=== PATIENT | female | born 1995 ===

== ENCOUNTER 2018-09-02 11:39 | Emergency (ER) | payer SELFPAY ==
[2018-09-02 12:08] VITALS: RESP 16
[2018-09-02] MEDS ORDERED: Mag&Al/Simet/Diphen/Lido 237 ML KIT MM STA (12:19)
--- NOTE | 2018-09-02 12:21 | C.PDOC ---
History Of Present Illness 22 y/o F c PMHx thyroid disease, appendectomy p/w sore throat, back ache, headache x 4 days. Reports fever of 100.1 or so for the first 1 to 2 days. Taking Theraflu at home. Denies stiff neck, vomiting, dyspnea, cough, dysuria, increased urinary frequency, recent travel, sick contacts. Time Seen by Provider: 09/02/18 12:14 Chief Complaint (Nursing): ENT Problem Past Medical History Vital Signs: Last Vital Signs Temp 98.1 F 09/02/18 12:05 Pulse 100 H 09/02/18 12:05 Resp 16 09/02/18 12:05 BP 101/68 09/02/18 12:05 Pulse Ox 96 09/02/18 12:05 - Medical History PMH: Hyperthyroidism Surgical History: Appendectomy Family History: States: No Known Family Hx - Social History Hx Alcohol Use: No Hx Substance Use: No - Immunization History Hx Tetanus Toxoid Vaccination: No Hx Influenza Vaccination: Yes Hx Pneumococcal Vaccination: No Review Of Systems Except As Marked, All Systems Reviewed And Found Negative. Respiratory: Negative for: Shortness of Breath Gastrointestinal: Negative for: Vomiting Physical Exam - Physical Exam Additional Physical Exam Comments: Gen: NAD Head: NC/AT Eyes: PERRL ENT: Phyarngeal erythema without exudates Chest: No tenderness CV: Regular rate Lungs: CTA b/l Abd: Soft, NT Back: No CVA tenderness. No midline tenderness Extremities: No edema Skin: No rash Neuro: Alert, no focal deficit ED Course And Treatment O2 Sat by Pulse Oximetry: 96 Medical Decision Making Medical Decision Making: Rapid strep negative. Magic mouthwash Discharged home, f/u PMD, return to ED for worsening pain, fever, vomiting, stiff neck, drooling, or any other problem. Disposition - Disposition Referrals: Guerda Genao MD [Staff Provider] - Disposition: HOME/ ROUTINE Disposition Time: 12:48 Condition: STABLE Prescriptions: Ibuprofen [Motrin] 1 tab PO Q6 #30 tab Instructions: Viral Pharyngitis Forms: [facility] ([place]se) - Clinical Impression Clinical Impression: Pharyngitis
[2018-09-02] MEDS ORDERED: Mag&Al/Simet/Diphen/Lido 237 ML KIT MM ONE (12:45)
[2018-09-02 13:27] VITALS: BP 108/66; PULSE 88; TEMP 98.3; O2SAT 99
== END 2018-09-02 15:28 | disposition home or self-care (01) ==
LOC: C.ER 11:39
DX: J02.9 Acute pharyngitis, unspecified (principal); E05.90 Thyrotoxicosis, unspecified without thyrotoxic crisis or storm

== ENCOUNTER 2018-10-21 10:37 | Outpatient (CLI) | payer SELFPAY | END 2018-10-21 10:38 | disposition home or self-care (01) | LOC: C.LAB 10:37 | DX: E03.9 Hypothyroidism, unspecified (principal) ==

== ENCOUNTER 2018-11-01 15:02 | Emergency (ER) | payer MEDICAID, SELFPAY ==
[2018-11-01 15:09] VITALS: BP 103/70; PULSE 110; TEMP 98.7; O2SAT 99
--- NOTE | 2018-11-01 16:08 | C.PDOC ---
History Of Present Illness 23 y/o female, otherwise well, presents to the ED complaining of back pain that began 3 days ago. She then developed cough and fever yesterday. No associated abdominal pain, vomiting, diarrhea, sore throat, rhinorrhea, or urinary symptoms. Patient denies any recent travel or known sick contacts. Time Seen by Provider: 11/01/18 15:33 Chief Complaint (Nursing): Flu-like Symptoms History Per: Patient History/Exam Limitations: no limitations Onset/Duration Of Symptoms: Days (x 3) Current Symptoms Are (Timing): Still Present Associated Symptoms: Fever, Cough, Other (Back Pain) Past Medical History Reviewed: Historical Data, Nursing Documentation, Vital Signs Vital Signs: Last Vital Signs Temp 98.7 F 11/01/18 15:06 Pulse 110 H 11/01/18 15:06 Resp 18 11/01/18 15:06 BP 103/70 11/01/18 15:06 Pulse Ox 99 11/01/18 15:06 - Medical History PMH: Hyperthyroidism Surgical History: Appendectomy Family History: States: No Known Family Hx - Social History Hx Alcohol Use: No Hx Substance Use: No - Immunization History Hx Tetanus Toxoid Vaccination: No Hx Influenza Vaccination: Yes Hx Pneumococcal Vaccination: No Review Of Systems Except As Marked, All Systems Reviewed And Found Negative. Constitutional: Positive for: Fever ENT: Negative for: Nose Discharge, Nose Congestion Cardiovascular: Negative for: Chest Pain Respiratory: Positive for: Cough. Negative for: Shortness of Breath Gastrointestinal: Negative for: Vomiting, Abdominal Pain, Diarrhea Genitourinary: Negative for: Dysuria, Frequency, Incontinence Musculoskeletal: Positive for: Back Pain Skin: Negative for: Rash Neurological: Negative for: Weakness, Headache Physical Exam - Physical Exam Appears: Well, Non-toxic, No Acute Distress Skin: Warm, Dry, No Rash Head: Atraumatic, Normacephalic Eye(s): bilateral: Normal Inspection, PERRL, EOMI Ear(s): Bilateral: Normal Oral Mucosa: Moist Throat: No Erythema, No Exudate Neck: Normal ROM, Supple Chest: Symmetrical Cardiovascular: Rhythm Regular, No Friction Rub, No Murmur Respiratory: No Rales, No Rhonchi, No Wheezing, Other (Lungs clear bilaterally) Gastrointestinal/Abdominal: Soft, No Tenderness, No Distention Back: Normal Inspection, No CVA Tenderness Extremity: Normal ROM, No Swelling Extremity: Bilateral: Atraumatic, Normal Color And Temperature Neurological/Psych: Oriented x3, Normal Speech, Normal Motor, Normal Sensation Gait: Steady ED Course And Treatment O2 Sat by Pulse Oximetry: 99 (RA) Pulse Ox Interpretation: Normal Progress Note: On re-exam, the patient reports improvement of symptoms. Lungs are CTA, heart is RRR, abdomen is soft, non-tender and the patient is tolerating PO well. Follow up with the medical doctor within 1-2 days. Return if worsened. Medical Decision Making Medical Decision Making: Plan: - Urinalysis - Urine HCG - Chest x-ray Disposition - Disposition Referrals: [facility] [Outside] Disposition: HOME/ ROUTINE Disposition Time: 17:18 Condition: GOOD Additional Instructions: Follow up with the medical doctor within 1-2 days. return if worsened. Prescriptions: Ibuprofen [Motrin] 600 mg PO TID #21 tab Loratadine [Claritin] 10 mg PO DAILY #10 tab predniSONE [Prednisone] 20 mg PO BID #10 tab Instructions: Flu, Adult (DC) Forms: [employer] (Maori), Work Excuse - Clinical Impression Clinical Impression: Influenza-like illness - PA / TIER IN / Resident Statement MD/DO has reviewed & agrees with the documentation as recorded. - Scribe Statement The provider has reviewed the documentation as recorded by the Scribglo Contreras All medical record entries made by the Scribe were at my direction and personally dictated by me. I have reviewed the chart and agree that the record accurately reflects my personal performance of the history, physical exam, medical decision making, and the department course for this patient. I have also personally directed, reviewed, and agree with the discharge instructions and disposition.
--- NOTE | 2018-11-01 16:26 | RAD ---
HISTORY: COUGH FEVER COMPARISON: None available. TECHNIQUE: Chest PA and lateral FINDINGS: LUNGS: No focal consolidation. Please note that chest x-ray has limited sensitivity for the detection of pulmonary masses. PLEURA: No significant pleural effusion identified. No definite pneumothorax . CARDIOVASCULAR: Heart size appears within normal limits. No atherosclerotic calcification present. OSSEOUS STRUCTURES: No acute osseous abnormality identified. VISUALIZED UPPER ABDOMEN: Unremarkable. OTHER FINDINGS: None. IMPRESSION: No focal consolidation.
[2018-11-01 16:34] LABS: HCG,QUALITATIVE URINE NEGATIVE (NEGATIVE)
[2018-11-01 16:47] LABS: SQUAMOUS EPITHIAL 2 /hpf (0-5); URINE BILIRUBIN NEGATIVE (NEGATIVE); URINE BLOOD 1+ (NEGATIVE); URINE CLARITY Hazy (Clear); URINE COLOR Yellow (YELLOW); URINE GLUCOSE (UA) NORMAL (Normal); URINE LEUKOCYTE ESTERASE NEG Leu/uL (Negative); URINE PROTEIN NEGATIVE (NEGATIVE); URINE UROBILINOGEN NORMAL mg/dL (0.2-1.0)
[2018-11-01 17:31] VITALS: RESP 20
== END 2018-11-01 17:31 | disposition home or self-care (01) ==
LOC: C.ER 15:02
DX: J11.1 Influenza due to unidentified influenza virus with other respiratory manifestations (principal)